=== PATIENT | male | born 1940 | race Caucasian/White ===

== ENCOUNTER 2019-03-17 08:47 | Emergency (ER) | payer OTHER, MEDICARE ==
[2019-03-17 09:17] LABS: Urine Blood NEGATIVE (NEG); Urine Glucose NEGATIVE (NEG); Urine Protein NEGATIVE (NEG); Urine pH 5.5 (5.0-7.0)
[2019-03-17 09:41] LABS: Urine Bacteria NONE SEEN /HPF (NONE SEEN); Urine Culture Reflex Order NOT NEEDED; Urine Mucus MOD /HPF (NONE SEEN); Urine RBC <5 /HPF (NONE SEEN)
[2019-03-17 10:21] LABS: Absolute Lymphocytes (CBC) 1.3 K/uL (0.7-4.9); Absolute Monocytes 0.8 K/uL (0.1-1.3); Absolute Neutrophil 4.1 K/uL (1.8-8.0); Basophils % 0.6 % (0-1.3); Eosinophils % 3.9 % (0-4.4); Hematocrit 48.1 % (39.6-49.0); Lymphocytes % 19.6 % (15.3-44.8); Monocytes % 11.8 % (3.3-12.3); RBC Red Blood Cell Count 5.73 M/uL (4.33-5.43)
--- NOTE | 2019-03-17 10:22 | RAD REPORT ---
EXAM DESCRIPTION: CT - Stone Protocol - 03/17/2019 9:54 am CLINICAL HISTORY: Abdominal pain. Left pelvic pain COMPARISON: None. TECHNIQUE: Computed axial tomography of the abdomen pelvis was obtained without oral or IV contrast. Lack of IV and oral contrast limits evaluation of solid organs, bowel, and vessels. Coronal reformat trent images were obtained and reviewed. All CT scans are performed using dose optimization technique as appropriate and may include automated exposure control or mA/KV adjustment according to patient size. FINDINGS: Bilateral renal calculi. No hydronephrosis. A ureteral calculus is not seen. A bladder glendy culus is not present. Small bilateral renal mass is nonspecific without IV contrast probably representing cysts. The prostate gland is mildly to moderately enlarged. Atherosclerotic changes involve the arteries. The liver, spleen, pancreas and adrenals appear grossly normal Diverticula stem from the colon without evidence of diverticulitis. IMPRESSION: Nonobstructing renal calculi
--- NOTE | 2019-03-17 10:24 | RAD REPORT ---
EXAM DESCRIPTION: US - Scrotum Testicles - 03/17/2019 9:50 am CLINICAL HISTORY: Left Testicular pain COMPARISON: None FINDINGS: Right testicle measures 4 x 2.2 x 3.1 centimeters. Echotexture is homogeneous. Normal bloo d flow Left testicle measures 4.2 x 1.9 x 2.5 centimeters. Echotexture is homogeneous. Normal blood flow The epididymides are normal in size and echotexture. Normal blood flow is seen. 4 millimeter right spermatocele Small bilateral hydroceles IMPRESSION: 4 millimeter right spermatocele Small bilateral hydroceles
[2019-03-17 10:29] LABS: Potassium 4.5 mmol/L (3.5-5.1)
--- NOTE | 2019-03-17 10:42 | ER ---
Nurse's Notes [facility] Name: Richard Mcqueen Age: 78 yrs Sex: Male : 1940 Arrival Date: 03/17/2019 Time: 08:50 Bed 18 Private MD: Diagnosis: Inguinal hernia;Nephrolithiasis;Hydrocele and spermatocele Presentation: 03/17 09:05 Presenting complaint: Patient states: pain/pulling sensation in left testicle, iw radiating to left leg, feels tingling in left leg, pain in left groin area, denies abd pain, denies urinary symptoms, denies injury. Transition of care: patient was not received from another setting of care. Onset of symptoms was March 14, 2019. Risk Assessment: Do you want to hurt yourself or someone else? Patient reports no desire to harm self or others. Initial Sepsis Screen: Does the patient meet any 2 criteria? No. Patient's initial sepsis screen is negative. Does the patient have a suspected source of infection? No. Patient's initial sepsis screen is negative. Care prior to arrival: None. 09:05 Method Of Arrival: Ambulatory iw 09:05 Acuity: FARTUN 3 iw Historical: - Allergies: 09:10 NKA; iw - Home Meds: 09:10 metoprolol tartrate 25 mg Oral tab 0.5 tab once daily [Active]; lovastatin 40 mg Oral iw tab 1 tab once daily [Active]; pantoprazole 40 mg oral TbEC 1 tab once daily [Active]; aspirin 81 mg Oral TbEC 1 tab once daily [Active]; Probiotic oral oral daily [Active]; tamsulosin 0.4 mg oral cp24 1 cap once daily [Active]; anastrozole 1 mg oral tab 1 tab once daily [Active]; - PMHx: 09:10 Kidney stones; iw - PSHx: 09:10 CABG; Appendectomy; Heart stents; iw - Family history:: not pertinent. - Ebola Screening: : Patient negative for fever greater than or equal to 101.5 degrees Fahrenheit, and additional compatible Ebola Virus Disease symptoms Patient denies exposure to infectious person Patient denies travel to an Ebola-affected area in the 21 days before illness onset No symptoms or risks identified at this time. - Hospitalizations: : No recent hospitalization is reported. Screenin:25 Abuse screen: Denies threats or abuse. Nutritional screening: No deficits noted. em Tuberculosis screening: No symptoms or risk factors identified. Fall Risk None identified. Assessment: 09:25 General: Appears in no apparent distress. comfortable, Behavior is calm, cooperative, em Denies fever. Pain: Complains of pain in groin Pain currently is 0 out of 10 on a pain scale. Aggravated by increased activity, walking. Neuro: Level of Consciousness is awake, alert, obeys commands, Oriented to person, place, time, situation. Cardiovascular: Capillary refill < 3 seconds Patient's skin is warm and dry. Respiratory: Airway is patent Respiratory effort is even, unlabored, Respiratory pattern is regular, symmetrical. GI: Patient currently denies abdominal pain, nausea, vomiting. : Reports "tugging on left testicle when walking" Denies burning with urination. Derm: Skin is intact, is thin, Skin is pink, warm \\T\\ dry. Musculoskeletal: Capillary refill < 3 seconds, Range of motion: intact in all extremities. 09:35 Reassessment: Patient appears in no apparent distress at this time. I agree with above iw assessment by Jessee Sexton LVN. 10:13 Reassessment: Patient appears in no apparent distress at this time. Patient and/or em family updated on plan of care and expected duration. Pain level reassessed. Patient is alert, oriented x 3, equal unlabored respirations, skin warm/dry/pink. Patient denies pain at this time. Vital Signs: 09:18 BP 125 / 92; Pulse 76; Resp 16; Temp 98.2; Pulse Ox 96% on R/A; iw 10:13 BP 165 / 93; Pulse 60; Resp 18; Pulse Ox 95% on R/A; Pain 0/10; em ED Course: 08:50 Patient arrived in ED. as 08:53 Lazarus Paez MD is Attending Physician. rn 08:56 Jessee Sexton LVN is Primary Nurse. em 09:07 Triage completed. iw 09:18 Arm band placed on. iw 09:21 Radiology exam delayed due to ULTRA SOUND ON THE WAY TO DO PORTABLE US. PT WILL BE kw1 TAKEN TO CT AFTER US IS COMPLETE. 09:23 Ultrasound completed. Patient tolerated well. sg3 09:25 Patient has correct armband on for positive identification. Placed in gown. Bed in low em position. Call light in reach. Pulse ox on. NIBP on. 09:25 Initial lab(s) drawn, by ED staff, sent to lab. Inserted saline lock: 20 gauge in right em forearm, using aseptic technique. Blood collected. 09:49 US Scrotum Testicles In Process Unspecified. EDMS 09:51 CT completed. Patient moved back from CT. bq 09:54 CT Stone Protocol In Process Unspecified. EDMS 10:12 Lab(s) recollected, by me, sent to lab. em 10:51 No provider procedures requiring assistance completed. IV discontinued, intact, em bleeding controlled, No redness/swelling at site. Pressure dressing applied. Administered Medications: No medications were administered Outcome: 10:41 Discharge ordered by MD. rn 10:51 Discharged to home ambulatory. em 10:51 Condition: good 10:51 Discharge instructions given to patient, Instructed on discharge instructions, follow up and referral plans. Demonstrated understanding of instructions, follow-up care. 10:52 Patient left the ED. em Signatures: Dispatcher [employer] EDMS Maria G Hamlin Edgar, CHEMICAL PRODUCTION ENGINEER CHEMICAL PRODUCTION ENGINEER Lisa Maravilla Irene, Lazarus Mercer RN, MD MD rn Wilhelm, Kimberly kw1 Norma Brown 3
--- NOTE | 2019-03-17 10:42 | EDPHYS ---
Physician Documentation [facility] Name: Richard Mcqueen Age: 78 yrs Sex: Male : 1940 Arrival Date: 03/17/2019 Time: 08:50 Bed 18 Private MD: ED Physician Lazarus Paez HPI: 03/17 09:03 This 78 yrs old Male presents to ER via Unassigned with complaints of Hip rn Pain, Leg Pain, testicle pain. 09:03 The patient presents with scrotal pain, of the left side, without swelling, without rn erythema. Onset: The symptoms/episode began/occurred 3 day(s) ago. Modifying factors: The symptoms are alleviated by nothing, the symptoms are aggravated by nothing. Severity of symptoms: At their worst the symptoms were mild, in the emergency department the symptoms are unchanged. The patient has not experienced similar symptoms in the past. Reports noticed left testicular pulling sensation, also reports left leg with paresthesias, no weakness, no trauma, no new urinary symptoms, no fever, no abd pain. . Historical: - Allergies: 09:10 NKA; iw - Home Meds: 09:10 metoprolol tartrate 25 mg Oral tab 0.5 tab once daily [Active]; lovastatin 40 mg Oral iw tab 1 tab once daily [Active]; pantoprazole 40 mg oral TbEC 1 tab once daily [Active]; aspirin 81 mg Oral TbEC 1 tab once daily [Active]; Probiotic oral oral daily [Active]; tamsulosin 0.4 mg oral cp24 1 cap once daily [Active]; anastrozole 1 mg oral tab 1 tab once daily [Active]; - PMHx: 09:10 Kidney stones; iw - PSHx: 09:10 CABG; Appendectomy; Heart stents; iw - Family history:: not pertinent. - Ebola Screening: : Patient negative for fever greater than or equal to 101.5 degrees Fahrenheit, and additional compatible Ebola Virus Disease symptoms Patient denies exposure to infectious person Patient denies travel to an Ebola-affected area in the 21 days before illness onset No symptoms or risks identified at this time. - Hospitalizations: : No recent hospitalization is reported. ROS: 09:03 Constitutional: Negative for fever, chills, and weight loss, Eyes: Negative for injury, rn pain, redness, and discharge, Cardiovascular: Negative for chest pain, palpitations, and edema, Respiratory: Negative for shortness of breath, cough, wheezing, and pleuritic chest pain, Abdomen/GI: Negative for abdominal pain, nausea, vomiting, diarrhea, and constipation, Back: Negative for injury and pain, : + left testicular pain MS/Extremity: Negative for injury and deformity, Skin: Negative for injury, rash, and discoloration, Neuro: Negative for headache, weakness, and seizure. Exam: 09:04 Constitutional: This is a well developed, well nourished patient who is awake, alert, rn and in no acute distress. Abdomen/GI: soft, non-tender, no peritoneal signs Male : No testicular swelling or skin changes, + palpable left inguinal hernia without tenderness or overlying skin changes. Neuro: Awake and alert, GCS 15, oriented to person, place, time, and situation. Cranial nerves II-XII grossly intact. Motor strength 5/5 in all extremities. Sensory grossly intact. Cerebellar exam normal. Normal gait. Vital Signs: 09:18 BP 125 / 92; Pulse 76; Resp 16; Temp 98.2; Pulse Ox 96% on R/A; iw 10:13 BP 165 / 93; Pulse 60; Resp 18; Pulse Ox 95% on R/A; Pain 0/10; em MDM: 08:53 Patient medically screened. rn 10:38 Differential diagnosis: inguinal hernia, kidney stone, radiculopathy, UTI. Data rn reviewed: vital signs, nurses notes, lab test result(s), radiologic studies, CT scan, ultrasound, and as a result, I will discharge patient. Counseling: I had a detailed discussion with the patient and/or guardian regarding: the historical points, exam findings, and any diagnostic results supporting the discharge/admit diagnosis, lab results, radiology results, the need for outpatient follow up, to return to the emergency department if symptoms worsen or persist or if there are any questions or concerns that arise at home. Special discussion: I discussed with the patient/guardian in detail that at this point there is no indication for admission to the hospital. It is understood, however, that if the symptoms persist or worsen the patient needs to return immediately for re-evaluation. 10:38 ED course: Recommended outpt f/u for inguinal hernia, notified of rn hydroceles/spermatocele, and kidney stones. . 03/17 09:02 Order name: CBC with Diff rn 03/17 09:02 Order name: Basic Metabolic Panel; Complete Time: 10:29 rn 03/17 09:02 Order name: CT Stone Protocol; Complete Time: 10: rn 03/17 09:02 Order name: US Scrotum Testicles; Complete Time: 10: rn 03/17 09:02 Order name: Urine Microscopic Only; Complete Time: 10: rn 03/17 09:14 Order name: Urine Dipstick--Ancillary (enter results); Complete Time: 10:25 eb 03/17 09:02 Order name: IV Start; Complete Time: 09: rn 03/17 09:02 Order name: Urine Dipstick-Ancillary (obtain specimen); Complete Time: : rn 03/17 09:38 Order name: Labs - recollect needed; Complete Time: 10:12 eb Administered Medications: No medications were administered Disposition: 03/17/19 10:41 Discharged to Home. Impression: Inguinal hernia, Nephrolithiasis, Hydrocele and spermatocele. - Condition is Stable. - Discharge Instructions: Kidney Stones, Inguinal Hernia, Adult, Hydrocele, Adult, Spermatocele. - Medication Reconciliation Form, Thank You Letter, Antibiotic Education, Prescription Opioid Use form. - Follow up: Private Physician; When: As needed; Reason: Recheck today's complaints, Re-evaluation by your physician. - Problem is new. - Symptoms have improved. Signatures: Dispatcher [employer] EDJessee Murphy, STROBOSCOPE OPERATOR STROBOSCOPE OPERATOR Sherry Ramirez RN RN iw Nieto, Roman, MD MD rn Botello, Elizabeth eb Corrections: (The following items were deleted from the chart) 09:05 09:03 Onset: The symptoms/episode began/occurred yesterday, rn rn 10:52 10:41 03/17/2019 10:41 Discharged to Home. Impression: Inguinal hernia; em Nephrolithiasis; Hydrocele and spermatocele. Condition is Stable. Forms are Medication Reconciliation Form, Thank You Letter, Antibiotic Education, Prescription Opioid Use. Follow up: Private Physician; When: As needed; Reason: Recheck today's complaints, Re-evaluation by your physician. Problem is new. Symptoms have improved. rn
== END 2019-03-17 10:52 | disposition home or self-care (01) ==
LOC: ER 08:47
DX: K40.90 Unilateral inguinal hernia, without obstruction or gangrene, not specified as recurrent (principal); N20.0 Calculus of kidney; N43.3 Hydrocele, unspecified; N43.40 Spermatocele of epididymis, unspecified; Z79.82 Long term (current) use of aspirin
CPT/HCPCS: 36415; 74176; 76377; 76870; 80048; 81003; 81015; 85025; 99284